=== PATIENT | female | born 2000 | race Caucasian/White ===

== ENCOUNTER 2021-07-14 10:50 | Emergency (ER) | payer OTHER, SELFPAY ==
[2021-07-14 10:51] VITALS: BP 111/80; PULSE 87; RESP 14; TEMP 36.2; O2SAT 96; BMI 36.3
--- NOTE | 2021-07-14 11:03 | EDS_ITS ---
HPI History of Present Illness Chief Complaint: Back Informant: patient Onset/Context/Timing Onset: Today Context: Sudden Onset Injury: fall Timing: Continuous Quality: Aching (and tightening/spasming) Location: Lumbar (bilat/all the way across) Current Severity: Severe Maximum Severity: Severe Worsened by: improves with Movement Relieved by: Remaining Still Associated Symptoms Associated Symptoms: Negative for Numbness, Tingling, Radiation to Right Leg, Radiation to Left Leg, Abdominal Pain, Unable to Ambulate, Unable to Transfer, Urinary Retention, Urinary Incontinence, Constipation and Fecal Incontinence Narrative Narrative: Patient is a college student, she was walking with her backpack on this morning and slipped on ice and fell onto her back, stating that as a result she injured her low back. She states that the area of her back where her backpack was was protected because of the backpack. She denies any other injury, other than a mild scrape to the top of her right foot. She has been ambulatory since then, there was no loss of consciousness or head injury, she denies any numbness or tingling or other neurologic symptoms. States it feels like her back muscles on both sides are tightening up and spasming. [facility] Medical History Anxiety Home Medications naproxen 500 mg PO BID PRN #20 tab 07/14/21 [Rx Last Taken Unknown] orphenadrine citrate 100 mg PO BID PRN #14 tab 07/14/21 [Rx Last Taken Unknown] sertraline [Zoloft] 100 mg PO DAILY 07/14/21 [History Last Taken Unknown] Allergy/AdvReac Type Severity Reaction Status Date / Time No Known Allergies Allergy Verified 07/14/21 10:53 Surgical History no surgical history Social History Smoking Status: Never smoker ROS ROS ED Constitutional Constitutional ED: Denies chills or fever(s) Eyes Eyes: Denies blurry vision or diplopia ENT ENT ED: Denies ear pain, rhinorrhea or sore throat Cardiovascular Cardiovascular: Denies chest pain or palpitations Respiratory/Chest Respiratory/Chest: Denies cough or dyspnea Gastrointestinal Gastrointestinal: Denies abdominal pain, constipation, fecal incontinence, nausea or vomiting Genitourinary Genitourinary ED: Reports other Details: no urinary retention ; Denies abdominal discomfort or urinary incontinence Musculoskeletal Musculoskeletal: Reports as per HPI and back pain; Denies neck pain Integumentary Denies rash or wounds Neurologic Neurologic: Denies headache(s), paresthesias or weakness Allergic/Immunologic Allergic/Immunologic ED: Denies mouth swelling or tongue swelling EXAM Physical Exam Const Vital Signs: 07/14/21 10:51 Temperature 97.1 F L Temperature Source Temporal Pulse Rate 87 Respiratory Rate 14 Blood Pressure 111/80 Blood Pressure Mean 90 Pulse Ox 96 Oxygen Delivery Method Room Air Positive well nourished and well developed General Appearance ED: well developed and NAD HEENT Negative for trauma or tenderness Eyes PERRL and EOMs intact bilaterally Neck full ROM and supple GI normal to inspection, nondistended, normoactive bowel sounds, soft to palpation and non-tender Back/Spine normal to inspection Back/Spine Narrative: Mild diffuse lumbar midline tenderness, no palpable step- off or tenderness more so than paraspinal musculature Lumbar Spine / Lower Back: ROM limited, pain with ROM, paraspinal muscle tenderness bilateral, paraspinal muscle spasm and straight leg raise negative bilaterally Extremity normal to inspection, full ROM and no pedal edema Neuro oriented x3 and no sensory deficits noted Sensorium / Orientation: alert Motor Exam: strength 5/5 throughout and clonus absent Psych mental status grossly normal and thought process normal Skin no rashes or lesions noted and no wounds MDM MDM MDM Narrative Medical decision making narrative: X-rays of the lumbosacral spine show abnormality at T12 that may be consistent with a compression fracture. Unclear if this is consistent with her mechanism or not, certainly it is possible. She is having pain in that area. She is neurologically intact, this is a stable fracture if it is true, and she was medicated here with analgesics and muscle relaxers with instructions to follow-up with back specialist here at the hospital to whom she is referred. Radiography Diagnostic Testing: Clinical Impression(s) from Imaging Studies Lumbar Spine X-Ray 07/14/21 11:15 IMPRESSION: Findings suggest mild compression of the superior endplate of the T12 vertebrae. Electronically Signed: Berry Malagon MD at 11:44 EST , Service support , Discharge Plan Triage Chief Complaint: Back ED Provider: Jah Ott Dx/Rx/DC Orders Clinical Impression: T12 compression fracture, Fall from slipping on ice Instructions: ED Fracture, Vertebral Compression Prescriptions: New naproxen 500 MG tablet 500 mg PO BID PRN Qty: 20 RF: 0 orphenadrine citrate 100 mg tablet extended release 100 mg PO BID PRN (Reason: muscle spasm) Qty: 14 RF: 0 No Action sertraline [Zoloft] 100 mg Tablet 100 mg PO DAILY RF: 0 Primary Care Provider: Vernell Tilley NP Referrals: Alec Mireles DO [STAFF PHYSICIAN] - As soon as possible Vernell Tilley NP, [employer] [Primary Care Provider] - Disposition Disposition: Home, Self Care Discharge Date/Time: 07/14/21 12:04
--- NOTE | 2021-07-14 11:15 | RAD_ITS ---
STUDY: X-RAY - LUMBAR SPINE REASON FOR EXAM: Female, 21 years old. Fall/injury TECHNIQUE: 2 view(s) of the lumbar spine were obtained. COMPARISON: None FINDINGS: Normal lumbar lordosis. There is no substantial scoliosis. There is a normal alignment of the vertebrae. Findings suggestive of a mild compression fracture along the superior endplate of the T12 vertebrae. Normal disc space heights. The soft tissue structures are unremarkable. RAD/Lumbar Spine 2 or 3 Views IMPRESSION: Findings suggest mild compression of the superior endplate of the T12 vertebrae. Electronically Signed: Berry Malagon MD at 11:44 EST , Service support ,
[2021-07-14] MEDS: Orphenadrine 60 MG/2 ML Ampul IM (11:28)
[2021-07-14] MEDS: Ketorolac 60 MG/2 ML Vial IM (11:28)
== END 2021-07-14 12:04 | disposition home or self-care (01) ==
PROVIDERS: Emergency Provider Emergency Medicine; PCP Registered Nurse; Visit Provider Emergency Medicine
DX: M48.54XA Collapsed vertebra, not elsewhere classified, thoracic region, initial encounter for fracture (principal); F41.9 Anxiety disorder, unspecified; W00.9XXA Unspecified fall due to ice and snow, initial encounter
CPT/HCPCS: 72100; 96372; 99282